=== PATIENT | female | born 1935 | race Caucasian/White ===

== ENCOUNTER 2018-07-11 15:49 | Inpatient (IN) | payer OTHER ==
[~2018-07-11] VITALS: Ht 162.6 cm; Wt 52.7 kg
--- NOTE | ~2018-07-11 | 2DMMODE ---
[facility] [address] [place] [address] 2 D/M-MODE ECHOCARDIOGRAM Name: SUZETTE LUGO Room #: 459-P ADM IN M.R.#: [id number] Admission: 07/11/18 Attend Phys: Dorian Nguyen Discharge: Date of : 33 Date of Service: 07/13/18 0936 Report #: [id number] THIS REPORT FOR: //name// APPROVED REPORT Study performed: 07/13/2018 08:33:53 EXAM: Comprehensive 2D, Doppler, and color-flow Echocardiogram Patient Location: Bedside Room #: [facility] Status: routine BSA: 1.55 HR: 60 bpm BP: 143/55 mmHg Rhythm: NSR Other Information Study Quality: Good Indications CVA/TIA Hx: CVA HLP 2D Dimensions RVDd: 34.36 mm IVSd: 12.47 (7-11mm) LVOT Diam: 20.38 (18-24mm) LVDd: 42.73 mm PWd: 8.99 (7-11mm) Ascending Ao: 29.37 (22-36mm) LVDs: 23.52 (25-40mm) Aortic Root: 32.02 mm Volumes Left Atrial Volume (Systole) Single Plane 4CH: 35.17 mL Single Plane 2CH: 39.79 mL LA ESV Index: 27.00 mL/m2 Aortic Valve AoV Peak Davie.: 1.66 m/s AO Peak Gr.: 10.98 mmHg LVOT Max P.22 mmHg LVOT Max V: 1.03 m/s PATRICIA Vmax: 2.02 cm2 Mitral Valve E/A Ratio: 0.7 MV Decel. Time: 239.23 ms [facility] [place] [address] 2 D/M-MODE ECHOCARDIOGRAM Name: SUZETTE LUGO Room #: [address] [place] [address] [place] ..#: [id number] Admission: 07/11/18 Attend Phys: Dorian Nguyen Discharge: Date of : 33 Date of Service: 07/13/18 0936 Report #: [id number] MV E Max Davie.: 0.69 m/s MV A Davie.: 1.03 m/s MV PHT: 69.38 ms IVRT: 83.04 ms Pulmonary Valve PV Peak Davie.: 0.81 m/s PV Peak Gr.: 2.62 mmHg Pulmonary Vein P Vein S: 0.75 m/s P Vein A: 0.33 m/s P Vein D: 0.37 m/s P Vein A Dur.: 106.1 msec P Vein S/D Ratio: 2.03 Tricuspid Valve TR Peak Davie.: 2.16 m/s RAP Estimate: 5.00 mmHg TR Peak Gr.: 18.60 mmHg PA Pressure: 24.00 mmHg Left Ventricle The left ventricle is normal size. There is normal LV segmental wall motion. Mild concentric left ventricular hypertrophy. Left ventricular systolic function is normal. LVEF is 60-65%. Mild diastolic dysfunction is present (impaired relaxation pattern). Right Ventricle The right ventricle is normal size. The right ventricular systolic function is normal. Atria The left atrium size is normal. The right atrium size is normal. Aortic Valve The aortic valve is mildly sclerotic, trileaflet. No aortic regurgitation is present. There is no aortic valvular stenosis. Mitral Valve The mitral valve is normal in structure. Trace to mild mitral regurgitation. Tricuspid Valve The tricuspid valve is normal in structure. Trace to mild tricuspid regurgitation. Estimated PAP is 25mmHg. [address] [address] 2 D/M-MODE ECHOCARDIOGRAM Name: SUZETTE LUGO Room #: 459-P [facility] IN .R.#: [id number] Admission: 07/11/18 Attend Phys: Dorian Nguyen Discharge: Date of : 33 Date of Service: 07/13/18 0936 Report #: [id number] Pulmonic Valve The pulmonary valve is normal in structure. Trace pulmonic regurgitation. Great Vessels The aortic root is normal in size. The ascending aorta is normal in size. IVC is normal in size and collapses >50% with inspiration. Pericardium There is no pericardial effusion. <Conclusion> Left ventricular systolic function is normal. Mild concentric left ventricular hypertrophy. LVEF is 60-65%. Mild diastolic dysfunction The aortic valve is mildly sclerotic, trileaflet. No aortic regurgitation or stenosis The mitral valve is normal in structure. Trace to mild mitral regurgitation. Trace to mild tricuspid regurgitation. Estimated pulmonary artery pressure of 25mmHg. There is no pericardial effusion. <ELECTRONICALLY SIGNED> By: Manish Molina MD, FACC 07/13/18935 5 5 Manish Molina MD, FACC /INF
--- NOTE | ~2018-07-11 | HC ---
[facility] [place] [address] CONSULTATION Name: SUZETTE LUGO Room #: 459-P [place] IN M.R.#: [id number] Admission: 07/11/18 Attend Phys: Angelito Orantes MD Discharge: 07/13/18 Date of : 33 Report #: [id number] THIS REPORT FOR: //name// CC: Angelito Shetty DATE OF SERVICE: 07/12/2018 HISTORY OF PRESENT ILLNESS: This is an 83-year-old female patient who was evaluated by me for an episode of speech difficulty. It happened around 3:00 yesterday. It came spontaneously without any trauma. It was moderately severe. It resolved by itself. This patient was seen by me in [facility]. 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 She had high blood pressure at that time, but how long that was going on was not clear. It looks like her blood pressure has been high for some time. She indicated she wanted to go to a bigger hospital, so that is why she came here. She does indicate that her blood pressure was running about 100 systolic. At that time, she feels fatigued and dizzy. That has happened to her in the past. Presently, she is doing reasonably well. REVIEW OF SYSTEMS: Positive for hypertension, which is most likely present for a long time. I reviewed all her prior studies as well as present studies. 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 In fact, the present MRI does not show any new stroke. She is already on statin. She is on antihypertensive. She is on a full dose of aspirin. That is what she takes at home. A 14-point review of system was carried out and this was her relevant 14-point review of system. PAST MEDICAL HISTORY: Positive for stroke. FAMILY HISTORY: Negative for any early age stroke. SOCIAL HISTORY: She does not smoke or drink any alcohol. PHYSICAL EXAMINATION: Indicate that she is alert, she is responsive. She is able to follow simple and complex command. She still does appear to have some hesitation of speech. Cranial nerve examination 2-12 indicates that there may be some weakness on the left side, but finding is subtle, but her sensation is normal. Reflexes are symmetrical. She has no cerebellar sign. There is no carotid bruit. Her echocardiogram is pending. Cardiac examination is unremarkable. No respiratory difficulty. No edema, cyanosis or jaundice. Her blood pressure last one is 141/62, respirations 18, pulse is 56, temperature is 98.3. LABORATORY DATA: Indicate a white count of 6.8. [address] [address] CONSULTATION Name: SUZETTE LUGO Room #: [address] [place] [address] [place] [facility].#: [id number] Admission: 07/11/18 Attend Phys: Angelito Orantes MD Discharge: 07/13/18 Date of : 33 Report #: [id number] IMPRESSION: 1. The present episode may be transient ischemic attack, but is probably related to her fluctuating hypertension. 2. History of stroke. 3. Significantly fluctuating blood pressure. RECOMMENDATIONS: 1. The main emphasis in this patient should be to evaluate any etiology for such fluctuation in the blood pressure and keep it somewhere on the higher range like 140-150 systolic and then try to gradually lower it. 2. I will switch her aspirin to Plavix. 3. She needs to be on statin and some antihypertensive, which I will defer to you. She indicates she was on statin at home. She wants to go home. I told her to stay here until tomorrow to monitor her blood pressure. If she insists on going home, she must check her blood pressure at least 2-3 times a day and should come back to Emergency Room in case she has any stroke-like symptom. I will add Plavix. After about 5 days, I will just leave her on Plavix and take care off the combination of aspirin and Plavix. Thank you very much for this referral. More than 50 minutes of time was spent taking care of this patient today and majority of that time was spent counseling the patient and coordinating her care. I reviewed the imaging studies in the past, talked to the nurses and reviewed her records in the hospital as well as in my office. <ELECTRONICALLY SIGNED> By: Harjeet Leal MD 07/20/18 1446 1423 0054 Harjeet Leal MD /nt
--- NOTE | ~2018-07-11 | EKG ---
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
[2018-07-11 16:02] VITALS: BP 155/48
[2018-07-11 16:22] LABS: ABSOLUTE NEUTROPHILS 5.6 thou/uL (1.4-8.2); BASOPHILS 0.5 % (0.0-2.0); EOSINOPHILS 1.6 % (0.0-3.0); HEMATOCRIT 37.7 % (37.0-47.0); HEMOGLOBIN 12.8 gm/dL (12.0-15.0); LYMPHOCYTES 13.6 % (24.0-44.0); MCH 29.7 pg (26.0-34.0); MCHC 33.9 g/dL (28.0-37.0); MCV 87.5 fL (80.0-100.0); MONOCYTES 8.6 % (1.0-8.0); PLATELET COUNT 276 thou/uL (150-400); POLYS 75.7 % (36.0-66.0); RBC 4.31 mil/uL (4.20-5.00); RDW 15.9 % (10.5-14.5); WBC 7.4 thou/uL (4.0-11.0)
[2018-07-11 16:26] LABS: ANION GAP 6 mmol/L (7-16); BUN 18 mg/dL (7-18); CALCIUM 9.9 mg/dL (8.5-10.1); CHLORIDE 98 mmol/L (98-107); CO2 28 mmol/L (21-32); CREATININE 1.2 mg/dL (0.6-1.0); GLUCOSE 184 mg/dL (74-106); POTASSIUM 3.8 mmol/L (3.5-5.1); SODIUM 132 mmol/L (136-145)
[2018-07-11 16:29] LABS: POC CREATININE 1.2 mg/dL (0.6-1.3); POC HEMOGLOBIN 12.9 g/dL (12.0-15.0); POC POTASSIUM 3.7 mmol/L (3.5-5.1)
[2018-07-11 16:32] LABS: APTT 25.4 Seconds (24.5-32.8); PROTIME 10.5 Seconds (9.3-11.4)
[2018-07-11 16:35] LABS: TROPONIN-I <0.06 ng/mL (<0.06)
[2018-07-11 17:53] VITALS: BP 150/52
[2018-07-11 19:15] VITALS: BP 162/62
[2018-07-11 19:43] VITALS: BP 187/61
[2018-07-11] MEDS ORDERED: ATORVASTATIN CA40 MG PO (19:59)
[2018-07-11] MEDS ORDERED: SYNTHROID50 MCG PO (20:03)
[2018-07-11] MEDS ORDERED: ASPIRIN325 PO (20:04)
[2018-07-11] MEDS ORDERED: HYDROCHLOROTH12.5 M1 PO (20:07)
[2018-07-11] MEDS ORDERED: COREG6.25 MG PO (20:09)
[2018-07-11] MEDS ORDERED: LISINOPRIL10 MG PO (20:09)
[2018-07-11] MEDS ORDERED: TRANDATE 200 M200 M1 PO (20:43)
[2018-07-12 04:41] VITALS: BP 115/41
[2018-07-12 06:21] LABS: HEMATOCRIT 36.5 % (37.0-47.0); HEMOGLOBIN 12.3 gm/dL (12.0-15.0); MCH 29.4 pg (26.0-34.0); MCHC 33.6 g/dL (28.0-37.0); MCV 87.3 fL (80.0-100.0); RBC 4.18 mil/uL (4.20-5.00); RDW 15.8 % (10.5-14.5); WBC 6.8 thou/uL (4.0-11.0)
[2018-07-12 06:28] LABS: PROTIME 10.5 Seconds (9.3-11.4)
[2018-07-12 06:30] LABS: CALCIUM 9.7 mg/dL (8.5-10.1); POTASSIUM 3.6 mmol/L (3.5-5.1)
[2018-07-12 08:00] VITALS: BP 141/62
[2018-07-12 16:38] VITALS: BP 176/74
[2018-07-12 19:01] VITALS: BP 133/60
[2018-07-13 02:51] VITALS: BP 143/55
[2018-07-13 08:00] VITALS: BP 147/59
[2018-07-13] MEDS ORDERED: PRINIVIL5 MG PO (13:27)
[2018-07-13] MEDS ORDERED: ASPIR 8181 MG PO (13:27)
[2018-07-13] MEDS ORDERED: CLOPIDOGREL75 MG PO (13:27)
[2018-07-13] MEDS ORDERED: COREG6.25 MG PO (13:27)
[2018-07-13 13:50] VITALS: BP 139/62
[2018-07-13 14:19] VITALS: BP 147/59
== END 2018-07-13 15:40 | disposition home or self-care (01) | DRG 64 ==
LOC: ER 15:49 → 4W 17:51 → EROBS 17:51 → 4W 19:16
PROVIDERS: Family Medicine; Student in an Organized Health Care Education/Training Program
DX: I63.9 Cerebral infarction, unspecified (principal); E43 Unspecified severe protein-calorie malnutrition; N17.9 Acute kidney failure, unspecified; I10 Essential (primary) hypertension; E03.9 Hypothyroidism, unspecified; R73.9 Hyperglycemia, unspecified; E78.5 Hyperlipidemia, unspecified; R25.3 Fasciculation; Z86.73 Personal history of transient ischemic attack (TIA), and cerebral infarction without residual deficits; Z91.041 Radiographic dye allergy status
CPT/HCPCS: 10045